=== PATIENT | male | born 1980 | race African-American/Black ===

== ENCOUNTER 2017-09-09 19:53 | Emergency (ER) | payer SELFPAY ==
--- NOTE | 2017-09-09 19:57 | NUR ---
Patient is awake, alert, oriented x4. Patient states he does not want to be seen in the hospital at this time.
--- NOTE | 2017-09-09 19:59 | NUR ---
Patient eloped from facility. ER physician notified. Patient ambulated with stable gait. patient refused assessment, refused triage, refused all medical evaluation at this time.
--- NOTE | 2017-09-09 20:02 | NUR ---
VSS at time of elopement. ER , Leon chappell. states patient is with appropriate mentation , AAOx4. Able to make needs known. Patient ambulated with stable gait, all belongings with patient. No peripheral IV was placed/No LDAs inplace.
== END 2017-09-09 20:10 | disposition left against medical advice (07) ==
LOC: ER 19:53
DX: Z53.21 Procedure and treatment not carried out due to patient leaving prior to being seen by health care provider (principal)

== ENCOUNTER 2017-09-09 23:17 | Emergency (ER) | payer SELFPAY ==
--- NOTE | 2017-09-09 23:53 | NUR ---
Patient was called x 2 for triage. patient states he wants to sleep and does not want to be seen right now. Charge nurse and MD aware, will reattempt to bring patient in for triage.
--- NOTE | 2017-09-10 00:10 | NUR ---
CALLED FOR PT.DOES NOT WANT TO BE SEEN.RESTING NOW
--- NOTE | 2017-09-10 00:30 | NUR ---
Final attempt to call patient in for triage. patient states " I am here to sleep dog, I don't need yalls' service, go get me a blanket and Kathie sleep". Patient educated about ER services, purpose of ER waiting room, and asked once more if he wanted to be seen by the doctor for any medical or social concern. The patient states " Nah, Im going to sleep. When I wake up Im gonna want some sandwiches and some damn juice". ER server and ER MD aware of ongoing issue with the patient. patient educated that the waiting room is not a sleeping area and unless he wants to be seen in the ER, he should not be sleeping in the waiting room.
== END 2017-09-10 00:40 | disposition left against medical advice (07) ==
LOC: ER 23:21
DX: Z53.21 Procedure and treatment not carried out due to patient leaving prior to being seen by health care provider (principal)